=== PATIENT | female | born 2000 | race Two or more races ===

== ENCOUNTER 2025-09-11 21:20 | Emergency (ER) | payer MEDICAID ==
[~2025-09-11] VITALS: Ht 162.6 cm; Wt 77.3 kg
[2025-09-11 21:26] VITALS: BP 104/71; PULSE 97; RESP 14; TEMP 97.9; O2SAT 99
[2025-09-11 22:04] LABS: APPEARANCE,URINE HAZY (CLEAR); GLUCOSE, URINE (UA) NEGATIVE (NEGATIVE); LEUKOCYTE ESTERASE ,URINE SMALL (NEGATIVE); NITRATE,URINE NEGATIVE (NEGATIVE); OCCULT BLOOD,URINE LARGE (NEGATIVE); SPECIFIC GRAVITIY, URINE 1.026 (1.003-1.030)
[2025-09-11 22:17] LABS: PLATELET COUNT (AUTO) 301 K/uL (150-450); RED BLOOD CELL COUNT(AUTO) 3.79 MIL/uL (4.00-5.20); RED CELL DISTRIBUTION WIDTH 13.2 % (11.5-14.5); WHITE BLOOD COUNT (AUTO) 11.5 K/uL (4.5-11.0)
[2025-09-11 22:21] LABS: CALCIUM, TOTAL 9.2 mg/dL (8.8-10.5); CREATININE 0.53 mg/dL (0.60-1.30); GLOMERULAR FILTR. RATE CALC > 60 mL/min (>60); GLUCOSE,RANDOM 97 mg/dL (70-110); SODIUM SERUM 136 mmol/L (136-145); UREA NITROGEN, BLOOD 11 mg/dL (7-18)
[2025-09-11 22:32] LABS: HCG,QUANTITATIVE 675 mIU/mL (0-6)
[2025-09-11 22:37] LABS: SQUAMOUS EPITHELIAL CELL,UR Few /LPF (None Seen)
== END 2025-09-12 03:43 | disposition home or self-care (01) ==
LOC: EMS 21:28
DX: O20.0 Threatened abortion (principal); N92.6 Irregular menstruation, unspecified; Z3A.00 Weeks of gestation of pregnancy not specified
CPT/HCPCS: 76801; 80048; 81001; 83690; 84702; 85025; 87086; 99284

== ENCOUNTER 2025-09-20 19:02 | Emergency (ER) | payer MEDICAID ==
[~2025-09-20] VITALS: Ht 165.1 cm; Wt 76.8 kg
[2025-09-20 19:18] VITALS: BP 120/93; PULSE 93; RESP 16; TEMP 98.6; O2SAT 100
[2025-09-20 19:32] LABS: PLATELET COUNT (AUTO) 375 K/uL (150-450); RED BLOOD CELL COUNT(AUTO) 3.92 MIL/uL (4.00-5.20); RED CELL DISTRIBUTION WIDTH 12.7 % (11.5-14.5); WHITE BLOOD COUNT (AUTO) 9.7 K/uL (4.5-11.0)
[2025-09-20 19:42] LABS: CALCIUM, TOTAL 9.4 mg/dL (8.8-10.5); CREATININE 0.68 mg/dL (0.60-1.30); GLOMERULAR FILTR. RATE CALC > 60 mL/min (>60); GLUCOSE,RANDOM 100 mg/dL (70-110); SODIUM SERUM 139 mmol/L (136-145); UREA NITROGEN, BLOOD 9 mg/dL (7-18)
[2025-09-20 19:56] LABS: ASPARTATE AMINOTRANSFERASE 17 U/L (15-37); HCG,QUANTITATIVE 400 mIU/mL (0-6); TOTAL PROTEIN, SERUM 8.1 g/dL (6.4-8.2)
[2025-09-20 20:55] LABS: APPEARANCE,URINE CLEAR (CLEAR); GLUCOSE, URINE (UA) NEGATIVE (NEGATIVE); LEUKOCYTE ESTERASE ,URINE NEGATIVE (NEGATIVE); NITRATE,URINE NEGATIVE (NEGATIVE); OCCULT BLOOD,URINE LARGE (NEGATIVE); SPECIFIC GRAVITIY, URINE 1.028 (1.003-1.030)
[2025-09-20 21:07] LABS: SQUAMOUS EPITHELIAL CELL,UR Few /LPF (None Seen)
== END 2025-09-20 23:27 | disposition home or self-care (01) ==
LOC: EMS 19:08
DX: O20.0 Threatened abortion (principal)
CPT/HCPCS: 76801; 80053; 81001; 84702; 85025; 86901; 99284